=== PATIENT | female | born 1945 | race Caucasian/White ===

== ENCOUNTER 2017-11-14 16:15 | Inpatient (IN) | payer MEDICARE ==
[~2017-11-14] VITALS: Ht 152.4 cm; Wt 47.6 kg
[2017-11-14 17:18] LABS: BASOPHILS 0.2 % (0-2); EOSINOPHILS 0.3 % (0-7); HEMATOCRIT 42.9 % (36.0-48.0); HEMOGLOBIN 13.8 g/dL (12-16); IMMATURE GRANULOCYTES 0.3 % (0-5); LYMPHOCYTES 11.7 % (15-50); MCH 29.6 pg (26.0-34.0); MCHC 32.2 g/dL (31.0-37.0); MCV 91.9 fL (80.0-100.0); MEAN PLATELET VOLUME 10.4 fL (7.4-10.4); MONOCYTES 11.2 % (2-11); NEUTROPHILS 76.3 % (40-80); PLATELET COUNT 234 10x3/uL (130-400); RBC 4.67 10x6/uL (4.00-5.40); RDW 13.3 % (11.5-14.5); WBC 10.8 10x3/uL (4.8-10.8)
[2017-11-14 17:34] LABS: APPEARANCE CLEAR (CLEAR); BILIRUBIN NEGATIVE (NEGATIVE); COLOR DK YELLOW (YELLOW); GLUCOSE NEGATIVE (NEGATIVE); KETONE MODERATE mg/dL (NEGATIVE); NITRITE POSITIVE (NEGATIVE); PROTEIN TRACE mg/dL (NEGATIVE); UROBILINOGEN NORMAL (NORMAL)
[2017-11-14 17:34] LABS: ALBUMIN 3.4 g/dL (3.4-5.0); ANION GAP 11.7 mmol/L (8-16); BILIRUBIN - TOTAL 0.68 mg/dL (0.2-1.3); CALCIUM 8.8 mg/dL (8.5-10.1); CREATININE - SERUM 0.9 mg/dL (0.6-1.3); POTASSIUM - SERUM 3.7 mmol/L (3.5-5.1); PROTEIN - SERUM 6.8 g/dL (6.4-8.2)
[2017-11-14 17:35] LABS: BACTERIA MODERATE /hpf (NONE SEEN)
[2017-11-14 18:18] LABS: INR 1.02 (0.85-1.17)
[2017-11-14 18:35] LABS: CREATINE KINASE 195 UL (21-215); MAGNESIUM - SERUM 1.9 mg/dL (1.8-2.4); PRO BNP 328 pg/mL (0-125)
[2017-11-14 18:38] LABS: TROPONIN-I < 0.017 ng/mL (0.000-0.060)
[2017-11-15] MEDS ORDERED: CELEXA10 MG PO (01:27)
[2017-11-15 01:28] VITALS: BP 129/72; Ht 152.4 cm; Wt 47.6 kg
[2017-11-15] MEDS ORDERED: PREDNISONE5 MG PO (01:28)
[2017-11-15] MEDS ORDERED: IPRAT-ALBUT 0.5-3 ML UPD (01:29)
[2017-11-15] MEDS ORDERED: DESERYL100 MG PO (01:29)
[2017-11-15 06:37] VITALS: BP 126/69
[2017-11-15 19:00] VITALS: BP 164/98
[2017-11-16] VITALS: BP 171/93
[2017-11-16 04:00] VITALS: BP 155/87
[2017-11-16 04:31] LABS: BASOPHILS 0.2 % (0-2); EOSINOPHILS 1.3 % (0-7); HEMOGLOBIN 14.4 g/dL (12-16); IMMATURE GRANULOCYTES 0.2 % (0-5); LYMPHOCYTES 12.8 % (15-50); MCH 29.3 pg (26.0-34.0); MCHC 32.7 g/dL (31.0-37.0); MEAN PLATELET VOLUME 10.5 fL (7.4-10.4); MONOCYTES 10.4 % (2-11); NEUTROPHILS 75.1 % (40-80); PLATELET COUNT 263 10x3/uL (130-400); RBC 4.92 10x6/uL (4.00-5.40); RDW 12.8 % (11.5-14.5); WBC 12.1 10x3/uL (4.8-10.8)
[2017-11-16 04:36] LABS: MCV 89.4 fL (80.0-100.0)
[2017-11-16 04:39] LABS: CALCIUM 8.3 mg/dL (8.5-10.1); CARBON DIOXIDE 28.9 mmol/L (21.0-32.0); CHLORIDE - SERUM 96 mmol/L (98-107); CREATININE - SERUM 0.7 mg/dL (0.6-1.3); SODIUM 136 mmol/L (136-145); eGFR NON AFRICAN AMERICAN 87 mL/min (90-120)
[2017-11-16 04:41] LABS: CALC OSMOLALITY 269 mosm/kg (275-300); GLUCOSE 68 mg/dL (74-106); POTASSIUM - SERUM 3.1 mmol/L (3.5-5.1); UREA NITROGEN 13 mg/dL (7-18)
[2017-11-16 08:29] VITALS: BP 172/90
[2017-11-16 11:09] VITALS: BP 160/80
[2017-11-16 14:49] VITALS: BP 177/91
[2017-11-16 20:30] VITALS: BP 150/78
[2017-11-17 00:30] VITALS: BP 160/79
[2017-11-17 04:00] VITALS: BP 185/84
[2017-11-17 04:41] LABS: BASOPHILS 0.2 % (0-2); EOSINOPHILS 2.2 % (0-7); HEMATOCRIT 42.6 % (36.0-48.0); HEMOGLOBIN 14.1 g/dL (12-16); IMMATURE GRANULOCYTES 0.5 % (0-5); LYMPHOCYTES 16.1 % (15-50); MCH 29.2 pg (26.0-34.0); MCHC 33.1 g/dL (31.0-37.0); MCV 88.2 fL (80.0-100.0); MEAN PLATELET VOLUME 10.3 fL (7.4-10.4); MONOCYTES 12.3 % (2-11); NEUTROPHILS 68.7 % (40-80); PLATELET COUNT 260 10x3/uL (130-400); RBC 4.83 10x6/uL (4.00-5.40); RDW 12.5 % (11.5-14.5); WBC 10.7 10x3/uL (4.8-10.8)
[2017-11-17 05:03] LABS: CALC OSMOLALITY 270 mosm/kg (275-300); CALCIUM 8.2 mg/dL (8.5-10.1); CARBON DIOXIDE 28.8 mmol/L (21.0-32.0); CHLORIDE - SERUM 99 mmol/L (98-107); CREATININE - SERUM 0.7 mg/dL (0.6-1.3); GLUCOSE 83 mg/dL (74-106); POTASSIUM - SERUM 3.3 mmol/L (3.5-5.1); SODIUM 137 mmol/L (136-145); eGFR NON AFRICAN AMERICAN 87 mL/min (90-120)
[2017-11-17 05:07] LABS: UREA NITROGEN 8 mg/dL (7-18)
[2017-11-17 07:50] VITALS: BP 169/94
[2017-11-17 11:47] VITALS: BP 166/92
[2017-11-17] MEDS ORDERED: Levaquin PREMIX IV (13:35)
[2017-11-17 15:37] VITALS: BP 195/97
== END 2017-11-17 17:48 | DRG 689 ==
LOC: D.ER 16:15 → D.SDCHOLD 20:23 → D.M2 20:23
PROVIDERS: Emergency Medicine; Family Medicine; Nurse Practitioner Family
DX: N39.0 Urinary tract infection, site not specified (principal); G92 Toxic encephalopathy; B96.1 Klebsiella pneumoniae [K. pneumoniae] as the cause of diseases classified elsewhere; J44.9 Chronic obstructive pulmonary disease, unspecified; I10 Essential (primary) hypertension; K21.9 Gastro-esophageal reflux disease without esophagitis; F03.90 Unspecified dementia, unspecified severity, without behavioral disturbance, psychotic disturbance, mood disturbance, and anxiety; E87.6 Hypokalemia

== ENCOUNTER 2017-11-17 18:20 | Inpatient (IN) | payer MEDICARE ==
[~2017-11-17] VITALS: Ht 152.4 cm; Wt 47.6 kg
--- NOTE | ~2017-11-17 | RHP ---
PATIENT: OJRDAN LUTZ MEDICAL RECORD: [id number] ACCOUNT: [id number] [facility] ADMISSION DATE: 11/17/17 REHABILITATION HISTORY AND PHYSICAL EXAMINATION POST ADMISSION PHYSICIAN EXAMINATION DATE OF ADMISSION: 11/17/2017. ADMITTING DIAGNOSES: Acute toxic encephalopathy HISTORY OF PRESENT ILLNESS: The patient is a 72-year-old female patient admitted to inpatient rehab, toxic encephalopathy secondary to UTI. She was admitted to the Emergency Room on 11/14/2017. She presented with decreased appetite, confusion, increased weakness after she fell and was found on the floor by her daughter, is unknown how long she was there. She got a past medical history of COPD, O2 dependent, dementia, hypertension, rheumatoid arthritis, and reflux. She was found to have a UTI and positive culture of Klebsiella pneumoniae. She had a temperature of 99 degrees, O2 sat in the low 90s, and requires continuous O2 at this time. She is alert and oriented times 3. I believe, she lives with her daughter. She was markedly independent with ADLs and mobility using a cane or walker. Currently, she is moderate to max assist for ADLs and mobility. She is moderate assist for sit to stand and bed to chair. She is max assist for mobility, ambulating 10 feet with a rolling walker, gait belt, and assistance with PT. She tires easily, become short of breath with exertion. She is motivated to regain her strength and return back home with her daughter, and get back to her prior level of functioning. COMORBIDITIES: In this patient include confusion, UTI, positive UA, weakness, vertigo, rheumatoid arthritis, COPD, O2 dependence, dementia, depression, and hypothyroidism. PAST MEDICAL HISTORY: Significant for weakness, vertigo, history of COPD, home O2 dependence, depression, dementia. PAST SURGICAL HISTORY: Includes hysterectomy, hernia repair, partial thyroidectomy, left breast lumpectomy. ALLERGIES: SULFA AND CEPHALOSPORINS. CURRENT MEDICATIONS: Floranex daily, prednisone 5 mg daily, Levaquin 500 mg daily, Celexa 10 mg daily, trazodone 200 mg at bedtime, DuoNeb updrafts, and polyethylene glycol 17 grams in 8 ounces of water daily. HABITS: No current alcohol or tobacco use. FAMILY HISTORY: Noncontributory. SOCIAL HISTORY: The patient hopes to return back home with her daughter and get back to her prior level of function. REVIEW OF SYSTEMS: GENERAL: Does complain of weakness and fatigue. HEENT: Denies cold, cough, or congestion. CARDIOVASCULAR: Denies any chest pain. LUNGS: Denies any shortness of breath. HISTORY AND PHYSICAL [id number] JORDAN LUTZ PHYSICAL EXAMINATION: VITAL SIGNS: Stable, afebrile. GENERAL: Elderly female in no acute distress, alert upon exam. HEENT: Normocephalic and atraumatic. Mucosa moist. NECK: Supple. No lymphadenopathy. LUNGS: Clear. HEART: Regular rate and rhythm. ABDOMEN: Benign. EXTREMITIES: No clubbing, cyanosis, or edema. NEUROLOGIC: Slow to mentate, but mainly intact. LABORATORY DATA: White count is 11.7, H&H of 14 and 43, and platelet count is 257. Sodium 138, potassium 3.2, BUN and creatinine of 8 and 0.6, and blood sugar was noted to be 87. ASSESSMENT: This is a 72-year-old female patient admitted to rehab with a working diagnosis of toxic encephalopathy caused by urinary tract infection caused by Klebsiella pneumoniae. The patient has potential to make improvement. We instituted the following multidisciplinary therapies including to, but not limited to physical, occupational, respiratory, speech, nutritional services, prosthetics, and orthotics. Given her complex condition and risk for more complications, rehabilitation services cannot provide a lower level of care such as intermediate facility. PLAN: 1. Admit to [facility] rehab for intensive inpatient therapy to include the following disciplines: A. Physical therapy to improve gait, all transfer skills and bed mobility to a modified independent level. B. Occupational therapy to improve activities of daily living to a modified independent level. C. Case management to assist with discharge planning and placement options. D. Nutrition to assist with nutritional needs. E. Rehabilitation nursing to assist in monitoring the patient's underlying medical conditions and to assist with any type of bowel or bladder management. 2. The patient's current medication will be continued. 3. The patient will be placed on standard fall precautions. 4. We will go ahead and replace potassium. 5. We will discuss this patient during care team staff meeting tomorrow. 6. We will follow up as needed. TRANSINT:[id number] Voice Confirmation ID: [id number] DOCUMENT ID: [id number] DELLA notes whether there has been none or any medical/functional change since admission: - No change since pre-admission screen. DELLA attests patient continues to be appropriate for IRF: - Continues to be appropriate for rehab. HISTORY AND PHYSICAL [id number] JORDAN LUTZ SCOTT MD at 0855 CC: [id number] DICTATION DATE: 11/18/17 1550 DYE MAKER: 11/18/17 1629 ADM IN [place] [id number] [place] [id number]
[~2017-11-17 18:20] MED LIST: CELEXA10 MG PO; DESERYL100 MG PO; IPRAT-ALBUT 0.5-3 ML UPD; Levaquin PREMIX IV; PREDNISONE5 MG PO
[2017-11-17 20:00] VITALS: BP 130/74
[2017-11-17 23:00] VITALS: BP 130/74; BMI 20.5
[2017-11-18 06:02] LABS: BASOPHILS 0.2 % (0-2); EOSINOPHILS 2.6 % (0-7); HEMOGLOBIN 14.2 g/dL (12-16); IMMATURE GRANULOCYTES 0.3 % (0-5); LYMPHOCYTES 16.8 % (15-50); MCH 29.3 pg (26.0-34.0); MCV 88.7 fL (80.0-100.0); MEAN PLATELET VOLUME 10.7 fL (7.4-10.4); MONOCYTES 11.6 % (2-11); NEUTROPHILS 68.5 % (40-80); PLATELET COUNT 257 10x3/uL (130-400); RBC 4.85 10x6/uL (4.00-5.40); RDW 12.9 % (11.5-14.5); WBC 11.7 10x3/uL (4.8-10.8)
[2017-11-18 06:18] LABS: CALC OSMOLALITY 272 mosm/kg (275-300); CALCIUM 8.6 mg/dL (8.5-10.1); CHLORIDE - SERUM 99 mmol/L (98-107); CREATININE - SERUM 0.6 mg/dL (0.6-1.3); GLUCOSE 87 mg/dL (74-106); POTASSIUM - SERUM 3.2 mmol/L (3.5-5.1); SODIUM 138 mmol/L (136-145); UREA NITROGEN 8 mg/dL (7-18); eGFR NON AFRICAN AMERICAN > 90 mL/min (90-120)
[2017-11-18 08:00] VITALS: BP 157/84
[2017-11-18 10:57] VITALS: Ht 152.4 cm; Wt 47.6 kg
[2017-11-18 22:30] VITALS: BP 144/85
[2017-11-19 06:08] LABS: BASOPHILS 0.2 % (0-2); HEMATOCRIT 44.4 % (36.0-48.0); HEMOGLOBIN 14.6 g/dL (12-16); IMMATURE GRANULOCYTES 0.8 % (0-5); LYMPHOCYTES 14.8 % (15-50); MCH 29.6 pg (26.0-34.0); MCHC 32.9 g/dL (31.0-37.0); MCV 90.1 fL (80.0-100.0); MEAN PLATELET VOLUME 10.9 fL (7.4-10.4); MONOCYTES 10.6 % (2-11); NEUTROPHILS 70.6 % (40-80); PLATELET COUNT 271 10x3/uL (130-400); RBC 4.93 10x6/uL (4.00-5.40); RDW 13.3 % (11.5-14.5); WBC 13.2 10x3/uL (4.8-10.8)
[2017-11-19 06:13] LABS: CALCIUM 8.9 mg/dL (8.5-10.1)
[2017-11-19 06:23] LABS: CREATININE - SERUM 0.8 mg/dL (0.6-1.3)
[2017-11-19 08:32] VITALS: BP 158/90
[2017-11-19 20:50] VITALS: BP 167/78
[2017-11-20 06:43] LABS: ANION GAP 7.3 mmol/L (8-16); CALCIUM 8.6 mg/dL (8.5-10.1); CARBON DIOXIDE 34.2 mmol/L (21.0-32.0); CREATININE - SERUM 0.8 mg/dL (0.6-1.3)
[2017-11-20 06:44] LABS: POTASSIUM - SERUM 3.5 mmol/L (3.5-5.1)
[2017-11-20 08:00] VITALS: BP 148/80
[2017-11-20 21:16] VITALS: BP 162/84
[2017-11-21 08:32] VITALS: BP 136/70
[2017-11-21 19:15] VITALS: BP 162/82
[2017-11-21 19:21] VITALS: BP 102/54
[2017-11-22 08:14] LABS: BASOPHILS 0.3 % (0-2); HEMATOCRIT 40.6 % (36.0-48.0); HEMOGLOBIN 12.8 g/dL (12-16); IMMATURE GRANULOCYTES 0.4 % (0-5); LYMPHOCYTES 17.2 % (15-50); MCH 28.8 pg (26.0-34.0); MCHC 31.5 g/dL (31.0-37.0); MCV 91.4 fL (80.0-100.0); MEAN PLATELET VOLUME 10.9 fL (7.4-10.4); MONOCYTES 9.1 % (2-11); PLATELET COUNT 285 10x3/uL (130-400); RBC 4.44 10x6/uL (4.00-5.40); RDW 13.6 % (11.5-14.5); WBC 11.6 10x3/uL (4.8-10.8)
[2017-11-22 08:49] LABS: CALC OSMOLALITY 284 mosm/kg (275-300); CALCIUM 8.8 mg/dL (8.5-10.1); CARBON DIOXIDE 32.4 mmol/L (21.0-32.0); CHLORIDE - SERUM 103 mmol/L (98-107); CREATININE - SERUM 0.7 mg/dL (0.6-1.3); GLUCOSE 89 mg/dL (74-106); POTASSIUM - SERUM 3.8 mmol/L (3.5-5.1); SODIUM 140 mmol/L (136-145); THYROID STIMULATING HORMONE 5.17 uIU/mL (0.36-3.74); UREA NITROGEN 32 mg/dL (7-18); eGFR NON AFRICAN AMERICAN 87 mL/min (90-120)
[2017-11-22 14:24] VITALS: BP 153/65
[2017-11-22 19:09] VITALS: BP 164/81
[2017-11-23 08:34] VITALS: BP 167/102
[2017-11-23 20:50] VITALS: BP 164/90
[2017-11-24 08:00] VITALS: BP 124/68
[2017-11-24 21:55] VITALS: BP 139/78
[2017-11-25 08:16] VITALS: BP 120/69
[2017-11-25 20:30] VITALS: BP 138/79
[2017-11-26 07:01] LABS: BASOPHILS 0.4 % (0-2); EOSINOPHILS 2.3 % (0-7); HEMATOCRIT 42.7 % (36.0-48.0); HEMOGLOBIN 13.3 g/dL (12-16); IMMATURE GRANULOCYTES 0.4 % (0-5); LYMPHOCYTES 20.5 % (15-50); MCH 28.9 pg (26.0-34.0); MCHC 31.1 g/dL (31.0-37.0); MCV 92.8 fL (80.0-100.0); MEAN PLATELET VOLUME 10.8 fL (7.4-10.4); MONOCYTES 9.3 % (2-11); NEUTROPHILS 67.1 % (40-80); PLATELET COUNT 299 10x3/uL (130-400); RDW 13.7 % (11.5-14.5); WBC 11.2 10x3/uL (4.8-10.8)
[2017-11-26 07:18] LABS: ANION GAP 9.7 mmol/L (8-16); CARBON DIOXIDE 30.6 mmol/L (21.0-32.0); CREATININE - SERUM 0.9 mg/dL (0.6-1.3); POTASSIUM - SERUM 4.3 mmol/L (3.5-5.1)
[2017-11-26 08:07] VITALS: BP 149/85
[2017-11-26 21:10] VITALS: BP 147/71
[2017-11-27 08:00] VITALS: BP 152/85
[2017-11-27] MEDS ORDERED: MEGACE40 MG PO (08:53)
[2017-11-27] MEDS ORDERED: ATIVAN0.5 MG PO (08:54)
[2017-11-27] MEDS ORDERED: SYNTHROID50 MCG PO (08:54)
[2017-11-27 22:09] VITALS: BP 141/86
[2017-11-28 06:26] LABS: BASOPHILS 0.4 % (0-2); EOSINOPHILS 3.2 % (0-7); HEMATOCRIT 41.8 % (36.0-48.0); IMMATURE GRANULOCYTES 0.2 % (0-5); MCHC 31.1 g/dL (31.0-37.0); MCV 93.1 fL (80.0-100.0); MEAN PLATELET VOLUME 10.4 fL (7.4-10.4); MONOCYTES 9.2 % (2-11); PLATELET COUNT 300 10x3/uL (130-400); RBC 4.49 10x6/uL (4.00-5.40); RDW 13.7 % (11.5-14.5); WBC 9.8 10x3/uL (4.8-10.8)
[2017-11-28 06:34] LABS: CALC OSMOLALITY 291 mosm/kg (275-300); CARBON DIOXIDE 32.9 mmol/L (21.0-32.0); CHLORIDE - SERUM 107 mmol/L (98-107); CREATININE - SERUM 0.7 mg/dL (0.6-1.3); GLUCOSE 87 mg/dL (74-106); POTASSIUM - SERUM 4.5 mmol/L (3.5-5.1); SODIUM 144 mmol/L (136-145); UREA NITROGEN 28 mg/dL (7-18); eGFR NON AFRICAN AMERICAN 87 mL/min (90-120)
[2017-11-28 06:55] LABS: CALCIUM 9.2 mg/dL (8.5-10.1)
[2017-11-28 08:29] VITALS: BP 164/87
== END 2017-11-28 15:18 | DRG 92 ==
LOC: D.REHAB 18:20
PROVIDERS: Emergency Medicine
DX: G92 Toxic encephalopathy (principal); N39.0 Urinary tract infection, site not specified; R41.0 Disorientation, unspecified; R53.1 Weakness; R42 Dizziness and giddiness; M06.9 Rheumatoid arthritis, unspecified; J44.9 Chronic obstructive pulmonary disease, unspecified; Z99.81 Dependence on supplemental oxygen; F03.90 Unspecified dementia, unspecified severity, without behavioral disturbance, psychotic disturbance, mood disturbance, and anxiety; F32.9 Major depressive disorder, single episode, unspecified; E03.9 Hypothyroidism, unspecified; E87.6 Hypokalemia

== ENCOUNTER 2018-10-07 11:32 | Inpatient (IN) | payer MEDICARE ==
[2018-10-07] VITALS (15 sets, daily range): BP systolic 126–172; BP diastolic 68–94; BMI 18.5
[~2018-10-07] VITALS: Ht 152.4 cm; Wt 43.1 kg
[~2018-10-07 11:32] MED LIST changes: +ATIVAN0.5 MG PO; +MEGACE40 MG PO; +SYNTHROID50 MCG PO
[2018-10-07 12:36] LABS: BASOPHILS 0.2 % (0-2); EOSINOPHILS 0.2 % (0-7); HEMATOCRIT 47.8 % (36.0-48.0); HEMOGLOBIN 15.5 g/dL (12-16); IMMATURE GRANULOCYTES 0.1 % (0-5); LYMPHOCYTES 18.7 % (15-50); MCH 30.5 pg (26.0-34.0); MCHC 32.4 g/dL (31.0-37.0); MCV 93.9 fL (80.0-100.0); MEAN PLATELET VOLUME 11.4 fL (7.4-10.4); MONOCYTES 10.5 % (2-11); NEUTROPHILS 70.3 % (40-80); RBC 5.09 10x6/uL (4.00-5.40); RDW 13.5 % (11.5-14.5); WBC 8.9 10x3/uL (4.8-10.8)
[2018-10-07 12:38] LABS: PLATELET COUNT 229 10x3/uL (130-400)
[2018-10-07 12:44] LABS: APTT 28.1 SECONDS (22.8-39.4); INR 1.06 (0.85-1.17); PROTIME 13.3 SECONDS (11.6-15.0)
[2018-10-07 12:45] LABS: APPEARANCE CLOUDY (CLEAR); COLOR YELLOW (YELLOW); GLUCOSE NEGATIVE (NEGATIVE); KETONE MODERATE mg/dL (NEGATIVE); NITRITE NEGATIVE (NEGATIVE); PROTEIN 1+ mg/dL (NEGATIVE); SPECIFIC GRAVITY 1.025 (1.005-1.020)
[2018-10-07 12:46] LABS: AMORPHOUS SEDIMENT <1+ /lpf (NONE SEEN); BACTERIA NONE SEEN /hpf (NONE SEEN); BILIRUBIN NEGATIVE (NEGATIVE); MUCUS <1+ /lpf (NONE SEEN); RED CELLS - URINE 0-5 /hpf (0-5); UROBILINOGEN NORMAL (NORMAL); WHITE CELLS - URINE 0-5 /hpf (0-5)
[2018-10-07 12:47] LABS: UDS - AMPHET NEGATIVE QUAL (NEGATIVE); UDS - BARB NEGATIVE QUAL (NEGATIVE); UDS - BENZO NEGATIVE QUAL (NEGATIVE); UDS - COCAINE NEGATIVE QUAL (NEGATIVE); UDS - OPIATE NEGATIVE QUAL (NEGATIVE); UDS - PCP NEGATIVE QUAL (NEGATIVE); UDS - THC NEGATIVE QUAL (NEGATIVE)
[2018-10-07 13:54] LABS: ALBUMIN 3.4 g/dL (3.4-5.0); ALKALINE PHOSPHATASE 80 U/L (46-116); ALT (SGPT) 18 U/L (10-68); BILIRUBIN - TOTAL 0.73 mg/dL (0.2-1.3); CALC OSMOLALITY 295 mosm/kg (275-300); CALCIUM 8.8 mg/dL (8.5-10.1); CARBON DIOXIDE 33.6 mmol/L (21.0-32.0); CHLORIDE - SERUM 103 mmol/L (98-107); CREATININE - SERUM 0.8 mg/dL (0.6-1.3); GLUCOSE 114 mg/dL (74-106); POTASSIUM - SERUM 3.1 mmol/L (3.5-5.1); PROTEIN - SERUM 6.6 g/dL (6.4-8.2); SODIUM 146 mmol/L (136-145); UREA NITROGEN 25 mg/dL (7-18); eGFR NON AFRICAN AMERICAN 74 mL/min (90-120)
[2018-10-07 14:05] LABS: CKMB 2.3 U/L (0.0-3.6); CREATINE KINASE 73 UL (21-215); MAGNESIUM - SERUM 1.9 mg/dL (1.8-2.4); THYROID STIMULATING HORMONE 2.51 uIU/mL (0.36-3.74)
[2018-10-07 14:06] LABS: TROPONIN-I < 0.017 ng/mL (0.000-0.060)
[2018-10-08] MEDS ORDERED: HYDROCHLOROTHIA25 MG PO (01:13)
[2018-10-08] MEDS ORDERED: PREDNISONE5 MG PO (01:14)
[2018-10-08 04:00] VITALS: BP 142/82
[2018-10-08 04:57] LABS: BASOPHILS 0.6 % (0-2); EOSINOPHILS 4.2 % (0-7); HEMATOCRIT 43.4 % (36.0-48.0); HEMOGLOBIN 13.6 g/dL (12-16); IMMATURE GRANULOCYTES 0.1 % (0-5); LYMPHOCYTES 20.5 % (15-50); MCHC 31.3 g/dL (31.0-37.0); MCV 95.8 fL (80.0-100.0); MONOCYTES 13.6 % (2-11); PLATELET COUNT 211 10x3/uL (130-400); RBC 4.53 10x6/uL (4.00-5.40); RDW 13.5 % (11.5-14.5); WBC 6.7 10x3/uL (4.8-10.8)
[2018-10-08 05:17] LABS: ALBUMIN 2.7 g/dL (3.4-5.0); ALKALINE PHOSPHATASE 56 U/L (46-116); ALT (SGPT) 16 U/L (10-68); BILIRUBIN - TOTAL 0.56 mg/dL (0.2-1.3); CALC OSMOLALITY 290 mosm/kg (275-300); CALCIUM 7.8 mg/dL (8.5-10.1); CARBON DIOXIDE 31.7 mmol/L (21.0-32.0); CHLORIDE - SERUM 105 mmol/L (98-107); CREATININE - SERUM 0.6 mg/dL (0.6-1.3); GLUCOSE 80 mg/dL (74-106); MAGNESIUM - SERUM 1.8 mg/dL (1.8-2.4); PROTEIN - SERUM 5.9 g/dL (6.4-8.2); SODIUM 145 mmol/L (136-145); UREA NITROGEN 21 mg/dL (7-18); eGFR NON AFRICAN AMERICAN > 90 mL/min (90-120)
[2018-10-08 08:37] VITALS: BP 158/80
[2018-10-08 10:52] VITALS: Ht 152.4 cm; Wt 43.1 kg
[2018-10-08 12:26] VITALS: BP 175/81
--- NOTE | 2018-10-08 16:00 | MORECARE ---
CASE MANAGEMENT DISCHARGE SUMMARY PATIENT: JORDAN LUTZ ADWOA UNIT: [id number] ADM DATE: 10/07/18 AGE: 73 : 43 SEX: F ROOM/BED: D.2202 AUTHOR: MARY,DOC PHYSICIAN: REFERRING PHYSICIAN: JENNIFER TORRES MD DATE OF SERVICE: 10/08/18 Discharge Plan Patient Name: JORDAN LUTZ Facility: [facility]:[place] : 1945 Planned Disposition: Anticipated Discharge Date: Discharge Date: Expected LOS: Initial Reviewer: [email or web address] Initial Review Date: 10/07/2018 Generated: 10/08/18 5:00 pm Comments DCP- Discharge Planning Updated by [email or web address]: Damaris Naranjo on 10/08/18 2:[address] Patient Name: JORDAN LUTZ Admission Status: ER Accout number: [id number] Admission Date: 10-07-2018 : 1945 Admission Diagnosis: Attending: JENNIFER TORRES Current LOS: 1 Anticipated DC Date: Planned Disposition: Primary Insurance: MEDICARE A & B Discharge Planning Comments: CM SPOKE WITH [facility] AT [phone] AND STATES PATIENT HAS NOT BEEN DISCHARGED OR REVOCATED FROM THEM. HOSPICE STATES TO CALL THEM WHEN SHE IS DC'D FROM THE HOSPITAL. PATIENT IS CONFUSED AND CAN'T ANSWER QUESTIONS. MOST INFORMATION OBTAINED FROM MEDICAL PERSONEL AND THE HARD CHART. CM WILL FOLLOW AND ASSIST NEEDED. Plastic Tile Layer: Damaris Naranjo DCPIA - Discharge Planning Initial Assessment Updated by [email or web address]: Damaris Naranjo on 10/08/18 3:44 pm * Is the patient Alert and Oriented? No * PCP KADIE * Preadmission Environment Hospice * Facility Name [facility] AT [phone] * ADLs Total Dependent * List name and contact numbers for known caregivers / representatives who currently or will assist patient after discharge: SUZANNA, DAUGHTER, * Community resources currently utilized Hospice Home * Please name any agencies selected above. [facility] AT [phone] * Can the patient safely return to the preadmission environment? Yes Patient Name: GATTIS, JORDAN Page [id number] at 1600 All edits/amendments must be made on the electronic document DICTATION DATE: 10/08/181599 WHEAT GROWER: NESSA 10/08/181599 RPT#: [id number] DC DATE: STATUS: ADM IN [facility] [address] [place] [address] END OF REPORT
[2018-10-08 17:21] VITALS: BP 179/97
[2018-10-08 20:00] VITALS: BP 106/84
[2018-10-09 04:00] VITALS: BP 196/93
[2018-10-09 05:46] LABS: BASOPHILS 0.4 % (0-2); HEMATOCRIT 45.3 % (36.0-48.0); HEMOGLOBIN 14.5 g/dL (12-16); IMMATURE GRANULOCYTES 0.2 % (0-5); LYMPHOCYTES 13.3 % (15-50); MEAN PLATELET VOLUME 11.2 fL (7.4-10.4); MONOCYTES 9.1 % (2-11); PLATELET COUNT 234 10x3/uL (130-400); RBC 4.84 10x6/uL (4.00-5.40)
[2018-10-09 06:33] LABS: CALCIUM 8.1 mg/dL (8.5-10.1); CARBON DIOXIDE 26.3 mmol/L (21.0-32.0); CHLORIDE - SERUM 102 mmol/L (98-107); CREATININE - SERUM 0.6 mg/dL (0.6-1.3); MAGNESIUM - SERUM 1.6 mg/dL (1.8-2.4); PHOSPHOROUS 2.4 mg/dL (2.5-4.9); SODIUM 141 mmol/L (136-145); UREA NITROGEN 18 mg/dL (7-18); eGFR NON AFRICAN AMERICAN > 90 mL/min (90-120)
[2018-10-09 06:35] LABS: MCV 93.6 fL (80.0-100.0); WBC 12.2 10x3/uL (4.8-10.8)
[2018-10-09 07:30] LABS: CALC OSMOLALITY 280 mosm/kg (275-300); POTASSIUM - SERUM 3.8 mmol/L (3.5-5.1)
[2018-10-09 07:32] LABS: GLUCOSE 61 mg/dL (74-106)
[2018-10-09 08:00] VITALS: BP 186/102
[2018-10-09 12:00] VITALS: BP 164/85
--- NOTE | 2018-10-09 15:50 | MORECARE ---
CASE MANAGEMENT DISCHARGE SUMMARY PATIENT: JORDAN LUTZ ADWOA UNIT: [id number] ADM DATE: 10/07/18 AGE: 73 : 43 SEX: F ROOM/BED: D.2205 AUTHOR: MRAY,DOC PHYSICIAN: REFERRING PHYSICIAN: JENNIFER TORRES MD DATE OF SERVICE: 10/09/18 Discharge Plan Patient Name: JORDAN LUTZ Facility: [facility]:[place] : 1945 Planned Disposition: Anticipated Discharge Date: Discharge Date: Expected LOS: Initial Reviewer: [email or web address] Initial Review Date: 10/07/2018 Generated: 10/09/18 4:50 pm Comments DCP- Discharge Planning Updated by [email or web address]: Damaris Naranjo on 10/09/18 2:[address] Patient Name: JORDAN LUTZ Admission Status: ER Accout number: [id number] Admission Date: 10-07-2018 : 1945 Admission Diagnosis:ILEUS, UNSPECIFIED Attending: JENNIFER TORRES Current LOS: 2 Anticipated DC Date: Planned Disposition: Primary Insurance: MEDICARE A & B Discharge Planning Comments: CM SPOKE WITH PATIENT AND PATIENT DAUGHTER ABOUT DC PLANNING/NEEDS. DAUGHTER WANTS PATIENT TO GO TO AN INPT HOSPICE. CM CALLED [facility] WHO SHE IS UNDER THEIR CARE. THEY ARE SENDING A VAN TO PICK HER UP . CM WILL FAX DC SUMMARY TO [facility] AT THE [facility] AT [phone]. THE EQUIPMENT SERVICES ASSOCIATE WILL CALL WHEN ON WAY TO MARKET RESEARCH ASSOCIATE PATIENT. PHONE NUMBER TO [facility] [phone]. Welder/Fitter: Damaris Naranjo DCP- Discharge Planning Updated by [email or web address]: Damaris Naranjo on 10/08/18 2:[address] Patient Name: JORDAN LUTZ Admission Status: ER Accout number: [id number] Admission Date: 10-07-2018 : 1945 Admission Diagnosis: Attending: JENNIFER TORRES Current LOS: 1 Anticipated DC Date: Planned Disposition: Primary Insurance: MEDICARE A & B Discharge Planning Comments: CM SPOKE WITH [facility] AT [phone] AND STATES PATIENT HAS NOT BEEN DISCHARGED OR REVOCATED FROM THEM. HOSPICE STATES TO CALL THEM WHEN SHE IS DC'D FROM THE HOSPITAL. PATIENT IS CONFUSED AND CAN'T ANSWER QUESTIONS. MOST INFORMATION OBTAINED FROM MEDICAL PERSONEL AND THE HARD CHART. CM WILL FOLLOW AND ASSIST NEEDED. Welder/Fitter: Damaris Marcella DCPIA - Discharge Planning Initial Assessment Updated by [email or web address]: Damaris Naranjo on 10/08/18 3:44 pm * Is the patient Alert and Oriented? No * PCP KADIE * Preadmission Environment Hospice * Facility Name [facility] AT [phone] * ADLs Total Dependent * List name and contact numbers for known caregivers / representatives who currently or will assist patient after discharge: SUZANNA, DAUGHTER, * Community resources currently utilized Hospice Home * Please name any agencies selected above. [facility] AT [phone] * Can the patient safely return to the preadmission environment? Yes Last DP export: 10/08/18 3:00 pm Patient Name: JORDAN LUTZ Page [id number] at 1550 All edits/amendments must be made on the electronic document DICTATION DATE: 10/09/18 155 BRUSH TRIMMING MACHINE SETTER: NESSA 10/09/18 1550 RPT#: [id number] DC DATE: STATUS: ADM IN [facility] [address] [place] [address] END OF REPORT
[2018-10-09 16:12] VITALS: BP 183/92
--- NOTE | 2018-10-12 12:55 | MORECARE ---
CASE MANAGEMENT DISCHARGE SUMMARY PATIENT: JORDAN LUTZ ADWOA UNIT: [id number] ADM DATE: 10/07/18 AGE: 73 : 43 SEX: F ROOM/BED: D.2209 AUTHOR: MARYDOC PHYSICIAN: REFERRING PHYSICIAN: JENNIFER TORRES MD DATE OF SERVICE: 10/12/18 Discharge Plan Patient Name: JORDAN LUTZ Facility: [facility]:[place] : 1945 Planned Disposition: Anticipated Discharge Date: Discharge Date: 10/09/2018 Expected LOS: Initial Reviewer: [email or web address] Initial Review Date: 10/07/2018 Generated: 10/12/18 1:55 pm Comments DCP- Discharge Planning Updated by [email or web address]: Damaris Naranjo on 10/09/18 2:[address] Patient Name: JORDAN LUTZ Admission Status: ER Accout number: [id number] Admission Date: 10-07-2018 : 1945 Admission Diagnosis:ILEUS, UNSPECIFIED Attending: JENNIFER TORRES Current LOS: 2 Anticipated DC Date: Planned Disposition: Primary Insurance: MEDICARE A & B Discharge Planning Comments: CM SPOKE WITH PATIENT AND PATIENT DAUGHTER ABOUT DC PLANNING/NEEDS. DAUGHTER WANTS PATIENT TO GO TO AN INPT HOSPICE. CM CALLED [facility] WHO SHE IS UNDER THEIR CARE. THEY ARE SENDING A VAN TO PICK HER UP . CM WILL FAX DC SUMMARY TO [facility] AT THE [facility] AT [phone]. THE DESIGN TRANSFERRER WILL CALL WHEN ON WAY TO DIRECTOR OF AVIATION PATIENT. PHONE NUMBER TO [facility] [phone]. Marine Rigger: Damaris Naranjo DCP- Discharge Planning Updated by [email or web address]: Damaris Naranjo on 10/08/18 2:[address] Patient Name: JORDAN LUTZ Admission Status: ER Accout number: [id number] Admission Date: 10-07-2018 : 1945 Admission Diagnosis: Attending: JENNIFER TORRES Current LOS: 1 Anticipated DC Date: Planned Disposition: Primary Insurance: MEDICARE A & B Discharge Planning Comments: [facility] [phone] AND STATES PATIENT HAS NOT BEEN DISCHARGED OR REVOCATED FROM THEM. HOSPICE STATES TO CALL THEM WHEN SHE IS DC'D FROM THE HOSPITAL. PATIENT IS CONFUSED AND CAN'T ANSWER QUESTIONS. MOST INFORMATION OBTAINED FROM MEDICAL PERSONEL AND THE HARD CHART. CM WILL FOLLOW AND ASSIST NEEDED. Marine Rigger: Damaris Marcella DCPIA - Discharge Planning Initial Assessment Updated by [email or web address]: Damaris Naranjo on 10/08/18 3:44 pm * Is the patient Alert and Oriented? No * PCP KADIE * Preadmission Environment Hospice * Facility Name [facility] AT [phone] * ADLs Total Dependent * List name and contact numbers for known caregivers / representatives who currently or will assist patient after discharge: SUZANNA, DAUGHTER, * Community resources currently utilized Hospice Home * Please name any agencies selected above. [facility] AT [phone] * Can the patient safely return to the preadmission environment? Yes Last DP export: 10/09/18 2:50 pm Patient Name: JORDAN LUTZ Page [id number] at 1255 All edits/amendments must be made on the electronic document DICTATION DATE: 10/12/18 1254 ART GLASS SETTER: NESSA 10/12/18 1254 RPT#: [id number] DC DATE:10/09/18 STATUS: DIS IN [facility] [address] [place] [address] END OF REPORT
== END 2018-10-09 17:12 | disposition home health service (06) | DRG 389 ==
LOC: D.ER 11:32 → D.EDHOLD 18:36 → D.MS 18:36
PROVIDERS: Family Medicine; ADMIT Internal Medicine Nephrology
DX: K56.7 Ileus, unspecified (principal); N39.0 Urinary tract infection, site not specified; M48.54XA Collapsed vertebra, not elsewhere classified, thoracic region, initial encounter for fracture; I10 Essential (primary) hypertension; J44.9 Chronic obstructive pulmonary disease, unspecified; F03.90 Unspecified dementia, unspecified severity, without behavioral disturbance, psychotic disturbance, mood disturbance, and anxiety; E87.6 Hypokalemia; J98.4 Other disorders of lung